=== PATIENT | female | born 1985 | race African-American/Black ===

== ENCOUNTER 2018-10-18 22:56 | Emergency (ER) | payer OTHER ==
[~2018-10-18] VITALS: Ht 162.6 cm; Wt 103.9 kg
[~2018-10-18 22:56] MED LIST: ANUSOL-HC25 MG RECTAL; DOXYCYCLINE 10100 MG PO; HUMALOG100 UNIT/1; HUMALOG100 UNIT/1 SUBQ; HUMULIN N100 UNIT/1 SQ; IBUPROFEN 800800 M1 PO; INVOKAMET 150-1 EAC1 PO; LISINOPRIL10 MG PO; METFORMIN; PRINIVIL10 MG PO; TIZANIDINE HCL4 MG PO; VICTOZA0.6 MG/0.1; ZOCOR 10 MG TAB10 M1 PO; ZOCOR 10 MG TAB10 MG PO
[2018-10-19] MEDS ORDERED: BACTRIM DS TAB1 EACH PO (00:26)
[2018-10-19] MEDS ORDERED: KEFLEX500 M1 PO (00:26)
[2018-10-19 00:41] VITALS: BP 153/105
== END 2018-10-19 00:45 | disposition home or self-care (01) ==
LOC: ER 22:56
DX: L02.214 Cutaneous abscess of groin (principal); F17.210 Nicotine dependence, cigarettes, uncomplicated; E11.9 Type 2 diabetes mellitus without complications; Z86.2 Personal history of diseases of the blood and blood-forming organs and certain disorders involving the immune mechanism; Z98.890 Other specified postprocedural states; Z79.4 Long term (current) use of insulin